=== PATIENT | male | born 1945 | race Caucasian/White ===

== ENCOUNTER 2020-03-08 09:20 | Emergency (ER) | payer MEDICARE ==
[~2020-03-08] VITALS: Ht 175.3 cm; Wt 95.2 kg
[~2020-03-08 09:20] MED LIST: AMLODIPINE BESYL5 MG PO; ATORVASTATIN CA80 MG PO; CAPTOPRIL HCTZ PO; CLOMIPRAMINE HC25 MG PO; EPIPEN 2-P0.3 MG/0.3 IM; HYDROCHLOROTHIA25 MG PO; LORCET 5-325 M1 EACH PO; PRAVACHOL40 MG PO; PREDNISONE20 MG PO; SERTRALINE HCL100 MG PO; VISTARIL25 MG PO
[2020-03-08] MEDS ORDERED: PREDNISONE20 MG PO (10:21)
[2020-03-08] MEDS ORDERED: FAMCICLOVIR500 MG PO (10:21)
[2020-03-08] MEDS ORDERED: NORCO 7.5-3251 EACH PO (10:21)
== END 2020-03-08 10:28 | disposition home or self-care (01) ==
LOC: ED 09:20
DX: B02.8 Zoster with other complications (principal); I10 Essential (primary) hypertension; Z91.013 Allergy to seafood; Z88.8 Allergy status to other drugs, medicaments and biological substances; Z88.0 Allergy status to penicillin; Z79.899 Other long term (current) drug therapy
CPT/HCPCS: 99283; J7512

== ENCOUNTER 2020-04-04 13:52 | Emergency (ER) | payer MEDICARE ==
[~2020-04-04] VITALS: Ht 175.3 cm; Wt 95.3 kg
[~2020-04-04 13:52] MED LIST changes: +FAMCICLOVIR500 MG PO; +NORCO 7.5-3251 EACH PO
--- OUTSIDE RECORDS SUMMARY | 2020-04-04 13:56 | XMS ---
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 Bess has no Care Guidelines for this patient. [facility]: Visits indicate total known visits. ED/C VISIT TRACKING (12 MO.) [facility]04[facility]2020 13[facility] [place] [facility] COMPLAINT: - DIZZY, NECK PAIN, FEVER 03/08/2020 09:20 [facility] [place] TYPE: Emergency COMPLAINT: - RASH DIAGNOSES: - Allergy status to penicillin - Rash and other nonspecific skin eruption - Essential (primary) hypertension - Allergy to seafood - Zoster with other complications - Other detention (current) drug therapy - Allergy status to other drugs, medicaments and biological sub INPATIENT VISIT TRACKING (12 MO.) No inpatient visits to display in this time frame [id number]
--- NOTE | 2020-04-04 22:33 | EKG ---
[facility] [address] [place] [address] Signed Normal sinus rhythm Normal ECG When compared with ECG of 13-MAR-2019 19:24, No significant change was found Confirmed by MAJO FERREIRA MD ([id number]) on 04/04/2020 10:33:11 PM Electronically Signed By: MAJO FERREIRA MD 04/04/20 2233 PATIENT NAME: RAMY SORENSEN SONAL Electrocardiogram DATE OF : 47 PHYSICIAN: MAJO FERREIRA MD REPORT #: [id number] REPORT IS CONFIDENTIAL AND NOT TO BE RELEASED WITHOUT AUTHORIZATION
== END 2020-04-04 17:57 | disposition home or self-care (01) ==
LOC: ED 13:52
DX: J40 Bronchitis, not specified as acute or chronic (principal); I10 Essential (primary) hypertension; Z91.013 Allergy to seafood; Z88.8 Allergy status to other drugs, medicaments and biological substances; Z88.0 Allergy status to penicillin; Z79.899 Other long term (current) drug therapy
CPT/HCPCS: 0297T; 0298T; 71045; 80053; 83735; 84484; 85025; 93005; 93010; 94640; 99285-25; C9803

== ENCOUNTER 2020-10-09 19:45 | Emergency (ER) | payer MEDICARE ==
[~2020-10-09] VITALS: Ht 175.3 cm; Wt 95.3 kg
--- OUTSIDE RECORDS SUMMARY | 2020-10-09 19:46 | XMS ---
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 Eddie VISIT COUNT (12 MO.) 4 [facility] TOTAL 4 NOTE: Visits indicate total known visits. ED/UCC VISIT TRACKING (12 MO.) 10/09/2020 19:45 [facility] [place] TYPE: Emergency COMPLAINT: - CHEST PAIN 09/29/2020 12:04 [facility] [place] TYPE: Emergency COMPLAINT: - SOB DIAGNOSES: - Other chest pain - Essential (primary) hypertension - Shortness of breath - Allergy to seafood - Allergy status to penicillin - Allergy status to other drugs, medicaments and biological substances - Other terminal clerk (current) drug therapy 04/04/2020 13:53 [facility] [place] TYPE: Emergency COMPLAINT: - DIZZY, NECK PAIN, FEVER DIAGNOSES: - Contact with and (suspected) exposure to other viral communicable diseases - Bronchitis, not specified as acute or chronic - Allergy to seafood - Allergy status to penicillin - Essential (primary) hypertension - Other terminal clerk (current) drug therapy - Allergy status to other drugs, medicaments and biological substances - Shortness of breath 03/08/2020 09:[address] [facility] [place] TYPE: Emergency COMPLAINT: - RASH DIAGNOSES: - Allergy status to penicillin - Rash and other nonspecific skin eruption - Essential (primary) hypertension - Allergy to seafood - Zoster with other complications - Other correction (current) drug therapy - Allergy status to other drugs, medicaments and biological substances INPATIENT VISIT TRACKING (12 MO.) No inpatient visits to display in this time frame [id number]
[2020-10-09] MEDS ORDERED: K-TAB ER20 MEQ PO (22:45)
--- NOTE | 2020-10-11 19:04 | EKG ---
[facility] [address] [facility] [place], [place] [address] Signed Sinus bradycardia Otherwise normal ECG When compared with ECG of 29-SEP-2020 12:15, Criteria for Septal infarct are no longer present Confirmed by BALDEMAR HERNANDEZ DO ([id number]) on 10/11/2020 7:04:19 PM Electronically Signed By: BALDEMAR HERNANDEZ DO 10/11/20 1904 PATIENT NAME: RIOSANDRADERAMY Electrocardiogram DATE OF : 47 PHYSICIAN: BALDEMAR HERNANDEZ DO REPORT #: [id number] REPORT IS CONFIDENTIAL AND NOT TO BE RELEASED WITHOUT AUTHORIZATION
== END 2020-10-09 23:00 | disposition home or self-care (01) ==
LOC: ED 19:45
DX: R07.89 Other chest pain (principal); E87.6 Hypokalemia; I10 Essential (primary) hypertension; Z86.73 Personal history of transient ischemic attack (TIA), and cerebral infarction without residual deficits; Z87.891 Personal history of nicotine dependence; Z91.013 Allergy to seafood; Z88.8 Allergy status to other drugs, medicaments and biological substances; Z88.0 Allergy status to penicillin; Z79.899 Other long term (current) drug therapy
CPT/HCPCS: 71045; 80053; 83735; 84484; 85025; 85379; 93005; 93010; 96374; 96375; 99285-25; C9113; J2405

== ENCOUNTER 2022-09-05 12:48 | Emergency (ER) | payer MEDICARE, OTHER ==
[~2022-09-05] VITALS: Ht 175.3 cm; Wt 97.5 kg
--- NOTE | ~2022-09-05 | EKG ---
[facility] [address] [facility] [place], [place] [address] Draft EK completed, results pending confirmation PATIENT NAME: RIOSANDRADERAMY Electrocardiogram DATE OF : 47 PHYSICIAN: PRELIMINARY REPORT #: [id number] REPORT IS CONFIDENTIAL AND NOT TO BE RELEASED WITHOUT AUTHORIZATION
[~2022-09-05 12:48] MED LIST changes: +K-TAB ER20 MEQ PO; +PHOSPHA 250 NE250 MG PO
== END 2022-09-05 16:48 | disposition home or self-care (01) ==
LOC: ED 12:48
DX: I95.1 Orthostatic hypotension (principal); I10 Essential (primary) hypertension; Z86.73 Personal history of transient ischemic attack (TIA), and cerebral infarction without residual deficits; Z87.891 Personal history of nicotine dependence; Z91.013 Allergy to seafood; Z88.0 Allergy status to penicillin; Z88.8 Allergy status to other drugs, medicaments and biological substances; Z79.899 Other long term (current) drug therapy
CPT/HCPCS: 36415; 80053; 81003; 83735; 84100; 85025; 93005; 93010; 96360; 99285-25; J7030

== ENCOUNTER 2022-10-15 16:33 | Emergency (ER) | payer MEDICARE, OTHER ==
[~2022-10-15] VITALS: Ht 175.3 cm; Wt 90.8 kg
--- NOTE | 2022-10-19 18:53 | EKG ---
[facility] [address] [facility] [place] [address] Signed Sinus bradycardia Nonspecific T wave abnormality Abnormal ECG When compared with ECG of 05-SEP-2022 12:59, No significant change was found Confirmed by Yazan Serrato MD () on 10/19/2022 6:52:59 PM Electronically Signed By: YAZAN SERRATO MD 10/19/221852 PATIENT NAME: EDURAMY Electrocardiogram DATE OF : 47 PHYSICIAN: YAZAN SERRATO MD REPORT #: [id number] REPORT IS CONFIDENTIAL AND NOT TO BE RELEASED WITHOUT AUTHORIZATION
== END 2022-10-15 20:17 | disposition home or self-care (01) ==
LOC: ED 16:33
DX: I95.1 Orthostatic hypotension (principal); I10 Essential (primary) hypertension; Z87.891 Personal history of nicotine dependence; Z79.899 Other long term (current) drug therapy; Z91.013 Allergy to seafood; Z88.8 Allergy status to other drugs, medicaments and biological substances; Z88.0 Allergy status to penicillin
CPT/HCPCS: 36415; 80053; 81003; 83735; 84484; 85025; 93005; 93010; 96360; 99284-25; J7030

== ENCOUNTER 2022-12-18 00:49 | Emergency (ER) | payer MEDICARE, OTHER ==
[~2022-12-18] VITALS: Ht 175.3 cm; Wt 95.7 kg
--- OUTSIDE RECORDS SUMMARY | 2022-12-18 00:56 | XMS ---
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 Care History Medical/Surgical 10/22/2020 [facility] - CHW CALLED PATIENT- UNABLE TO LEAVE A VOICEMAIL-VOICEMAIL BOX FULL - PATINET WAS LAST SEEN BY PCP DR MOLINA 04/09/2020 AND HAS NO FOLLOW UP APTS SCHEDULED. - CHW REQUESTED PCP CONTACT PATIENT FOR A FOLLOW UP APT TO BE SCHEDULED THEY STATED THEY WOULD. E.DShae VISIT COUNT (12 MO.) 4 [facility] TOTAL 4 NOTE: Visits indicate total known visits. ED/UCC VISIT TRACKING (12 MO.) 12/18/2022 00:50 [facility] [place] TYPE: Emergency COMPLAINT: - CP 11/19/2022 17:39 [facility] [place] TYPE: Emergency COMPLAINT: - WEAKNESS DIAGNOSES: - Allergy status to other drugs, medicaments and biological substances - Allergy status to penicillin - Allergy to seafood - Bradycardia, unspecified - Essential (primary) hypertension - Hypoglycemia, unspecified - Personal history of nicotine dependence - Personal history of transient ischemic attack (TIA), and cerebral infarction without residual deficits - Weakness 10/15/2022 16:33 [facility] [place] TYPE: Emergency COMPLAINT: - DIZZINESS DIAGNOSES: - Allergy status to other drugs, medicaments and biological substances - Allergy status to penicillin - Allergy to seafood - Dizziness and giddiness - Essential (primary) hypertension - Orthostatic hypotension - Other usp (current) drug therapy - Personal history of nicotine dependence 09/05/2022 12:48 [facility] [place] TYPE: Emergency COMPLAINT: - DIZZINESS DIAGNOSES: - Allergy status to other drugs, medicaments and biological substances - Allergy status to penicillin - Allergy to seafood - Essential (primary) hypertension - Orthostatic hypotension - Other usp (current) drug therapy - Personal history of nicotine dependence - Personal history of transient ischemic attack (TIA), and cerebral infarction without residual deficits - Weakness INPATIENT VISIT TRACKING (12 MO.) No inpatient visits to display in this time frame [id number]
[2022-12-18] MEDS ORDERED: MIRALAX17 GM PO (02:10)
[2022-12-18 02:30] VITALS: BP 116/58
--- NOTE | 2022-12-19 21:38 | EKG ---
[facility] [address] [facility] [place] [address] Signed Normal sinus rhythm Nonspecific T wave abnormality Abnormal ECG When compared with ECG of 19-NOV-2022 17:51, Sinus rhythm has replaced Junctional rhythm Confirmed by Yazan Serrato MD () on 12/19/2022 9:38:18 PM Electronically Signed By: YAZAN SERRATO MD 12/19/228 PATIENT NAME: EDURAMY Electrocardiogram DATE OF : 47 PHYSICIAN: YAZAN SERRATO MD REPORT #: [id number] REPORT IS CONFIDENTIAL AND NOT TO BE RELEASED WITHOUT AUTHORIZATION
== END 2022-12-18 02:31 | disposition home or self-care (01) ==
LOC: ED 00:49
DX: K56.7 Ileus, unspecified (principal); I10 Essential (primary) hypertension; Z87.891 Personal history of nicotine dependence; Z88.8 Allergy status to other drugs, medicaments and biological substances; Z91.013 Allergy to seafood; Z88.0 Allergy status to penicillin; Z79.899 Other long term (current) drug therapy
CPT/HCPCS: 36415; 71045; 74177; 80053; 83735; 83880; 84484; 85025; 85610; 93005; 93010; 99285-25; Q9967

== ENCOUNTER 2023-08-29 14:16 | Emergency (ER) | payer MEDICARE, OTHER ==
[~2023-08-29] VITALS: Ht 175.3 cm; Wt 90.8 kg
[~2023-08-29 14:16] MED LIST changes: +MIRALAX17 GM PO
[2023-08-29 14:46] LABS: BASOPHILS 0.8 % (0-2); EOSINOPHILS 4.3 % (0-6); HEMATOCRIT 40.5 % (35.0-50.0); LYMPHOCYTES 35.7 % (24-44); MCHC 34.6 g/dl (30-36); MCV 89.6 fl (81-99); MONOCYTES 9.2 % (0-12); PLATELET COUNT 129 K/uL (140-440); RBC 4.52 M/ul (4.3-5.7); RDW 13.7 (10.5-15.0)
[2023-08-29 15:02] LABS: ALBUMIN 3.3 g/dL (3.4-5.0); ALBUMIN/GLOBULIN RATIO 1.06 (1.1-2.4); ANION GAP 15.4 (7-21); BILIRUBIN, TOTAL 0.6 ng/dL (0.2-1.0); BUN/CREATININE RATIO 18.26 (6.0-28.6); CALCIUM 8.4 mg/dL (8.5-10.1); CREATININE, SERUM 1.04 mg/dL (0.70-1.30); POTASSIUM 3.4 mmol/L (3.5-5.1); PROTEIN, TOTAL 6.4 g/dL (6.4-8.2)
[2023-08-29 18:02] VITALS: BP 157/78
--- NOTE | 2023-08-30 20:22 | EKG ---
[facility] [address] [place] [address] Signed Marked sinus bradycardia Abnormal ECG When compared with ECG of 18-DEC-2022 00:56, Vent. rate has decreased BY 20 BPM Confirmed by Yazan Serrato MD () on 08/30/2023 8:22:38 PM Electronically Signed By: YAZAN SERRATO MD 08/30/232021 PATIENT NAME: RAMY SORENSEN SONAL Electrocardiogram DATE OF : 47 PHYSICIAN: YAZAN SERRATO MD REPORT #: [id number] REPORT IS CONFIDENTIAL AND NOT TO BE RELEASED WITHOUT AUTHORIZATION
== END 2023-08-29 18:03 | disposition left against medical advice (07) ==
LOC: ED 14:16
PROVIDERS: Family Medicine
DX: R00.1 Bradycardia, unspecified (principal); R55 Syncope and collapse; Z53.29 Procedure and treatment not carried out because of patient's decision for other reasons; I10 Essential (primary) hypertension; Z87.891 Personal history of nicotine dependence; Z88.8 Allergy status to other drugs, medicaments and biological substances; Z88.0 Allergy status to penicillin; Z91.013 Allergy to seafood; Z79.899 Other long term (current) drug therapy
CPT/HCPCS: 36415; 71045; 73030; 80053; 83735; 84484; 85025; 99284-25

== ENCOUNTER 2024-04-09 11:12 | Observation (INO) | payer MEDICARE, OTHER ==
[~2024-04-09] VITALS: Ht 175.3 cm; Wt 89.1 kg
[~2024-04-09 11:12] MED LIST changes: +HYDROXYZINE HCL25 MG PO
[2024-04-09] MEDS ORDERED: IBLOOD GLUCOSE TEST STRIP 1 EA TEST XX ONE (11:45)
[2024-04-09 11:47] LABS: BASOPHILS 0.7 % (0-2); EOSINOPHILS 1.2 % (0-6); HEMATOCRIT 45.6 % (35.0-50.0); HEMOGLOBIN 15.6 g/dL (12.0-18.0); LYMPHOCYTES 41.5 % (24-44); MCH 30.3 (27-36); MCHC 34.1 g/dl (30-36); MCV 88.8 fl (81-99); MONOCYTES 8.5 % (0-12); NEUTROPHILS 48.1 % (39-80); PLATELET COUNT 136 K/uL (140-440); RBC 5.14 M/ul (4.3-5.7); RDW 14.7 (10.5-15.0)
[2024-04-09 11:59] LABS: INR 1.01 (0.80-1.30); PROTIME 12.6 Sec (11.2-14.2)
[2024-04-09 12:11] LABS: ALBUMIN 3.8 g/dL (3.4-5.0); ALBUMIN/GLOBULIN RATIO 1.19 (1.1-2.4); ANION GAP 17.1 (7-21); BILIRUBIN, TOTAL 0.7 ng/dL (0.2-1.0); BUN/CREATININE RATIO 15.38 (6.0-28.6); CREATININE, SERUM 1.3 mg/dL (0.70-1.30); POTASSIUM 4.1 mmol/L (3.5-5.1)
[2024-04-09] MEDS ORDERED: ASPIRIN 325 MG TAB PO ONE (12:30)
[2024-04-09] MEDS ORDERED: CLOPIDOGREL BISULFATE 75 MG TAB PO ONE ×2 (12:30→13:15)
[2024-04-09] MEDS ORDERED: ATORVASTATIN 40 MG TAB PO ONE (13:15)
[2024-04-09 15:01] VITALS: BP 169/76
--- NOTE | 2024-04-09 15:15 | NUR ---
PATIENT IS SETTLED IN HIS ROOM ON THE MEDICAL SURGICAL FLOOR AT THIS TIME. ADMISSION COMPLETE. PATIENT WITH NO MEDICATIONS DUE. FULL ASSESSMENT COMPLETE AND DOCUMENTED IN THE CHART. PATIENT IS ALERT AND ORIENTED TIMES FOUR. NIH COMPLETE AND SCORED 0. PATIENT IS HARD OF HEARING. CARDIAC WITH NORMAL S1 AND S2 ON AUSCULTATION. RADIAL PULSES ARE STRONG BILATERALLY. SENSATION INTACT WITH NUMBNESS NOTED IN THE HANDS AND FEET BILATERALLY. PATIENT IS ON TELEMETRY NUMBER 6. PATIENT IS ON ROOM AIR AND LUNG SOUNDS ARE CLEAR BILATERALLY. PATIENT IS ON A REGULAR DIET AND BOWEL TONES ARE ACTIVE IN ALL FOUR QUADRANTS. LAST BOWEL MOVEMENT WAS 04/08/24. PATIENT WITH THE URINAL AT BEDSIDE. PATIENT WITH AN 18 GAUGE IV IN THE LEFT FOREARM. IV FLUSHED WITH 10 ML NORMAL SALINE AND IS SALINE LOCKED. IV DRESSING IS CLEAN, DRY, AND INTACT. PATIENT WITH PAIN RATED 7/10 IN THE SHOULDER. SKIN INTACT. PATIENT STATED NO FURTHER NEEDS AT THIS TIME. CALL LIGHT AND PERSONAL BELONGINGS ARE WITHIN REACH.
--- NOTE | 2024-04-09 15:53 | NUR ---
PATIENT GIVEN AN ENSURE SHAKE AND PUDDING. PATIENT EDUCATED TO PRESS THE CALL BUTTON IF THEY NEED TO GET UP AND OUT OF BED. PATIENT EXPRESSED UNDERSTANDING. PATIENT STATED NO FURTHER NEEDS AT THIS TIME. CALL LIGHT AND PERSONAL BELONGINGS ARE WITHIN REACH.
--- NOTE | 2024-04-09 16:30 | NUR ---
PATIENT IS LYING BED WITH EYES OPEN AND WATCHING TV. RESPIRATIONS ARE EVEN AND UNLABORED. CALL LIGHT AND PERSONAL BELONGINGS ARE WITHIN REACH.
--- NOTE | 2024-04-09 17:30 | NUR ---
PATIENT IS LYING IN BED AND TRYING TO GET A HOLD OF HIS IN A CARE FACILITY AT [facility]. PATIENT IS ON TELE #6. PATIENT WITH NO FURTHER NEEDS AT THIS TIME. BED ALARM ON. CALL LIGHT AND PERSONAL BELONGINGS ARE WITHIN REACH.
--- NOTE | 2024-04-09 17:45 | NUR ---
medications reconciled using pharmacy records and patient interview
[2024-04-09 17:56] VITALS: BP 136/76
[2024-04-09] MEDS ORDERED: ACETAMINOPHEN 325 MG TAB PO PRN (18:00)
[2024-04-09 18:14] VITALS: BP 136/76
--- NOTE | 2024-04-09 19:15 | NUR ---
BOARD UPDATED. REPORT RECEIVED FROM KULDIP KERR. pt RESTING IN THE BED. pt REQUESTING A SNACK. SNACK PROVIDED. pt DENIES ANY OTHER NEEDS A THIS TIME.
[2024-04-09 20:29] VITALS: BP 134/73
--- NOTE | 2024-04-09 21:15 | NUR ---
ASSESSMENT DONE. A&O X4. pt DENIES ANY NUMBNESS AND TINGLING. BED ALARM ON. pt DENIES ANY OTHER NEEDS AT THIS TIME. CALL LIGHT WITHIN REACH. WATER REFRESHED. pt ON TELE #6.
[2024-04-09 22:23] VITALS: BP 134/73
--- NOTE | 2024-04-09 22:29 | EKG ---
[facility] [address] [facility] [place] [address] Signed Sinus bradycardia Otherwise normal ECG When compared with ECG of 25-FEB-2024 19:11, No significant change was found Confirmed by Yazan Serrato MD () on 04/09/2024 10:29:06 PM Electronically Signed By: YAZAN SERRATO MD 04/09/24 2229 PATIENT NAME: RAMY SORENSEN SONAL Electrocardiogram DATE OF : 47 PHYSICIAN: YAZAN SERRATO MD REPORT #: [id number] REPORT IS CONFIDENTIAL AND NOT TO BE RELEASED WITHOUT AUTHORIZATION
--- NOTE | 2024-04-09 23:13 | NUR ---
pt RESTING IN THE BED WITH EYES CLOSED. RR EVEN AND UNLABORED. CALL LIGHT WITHIN REACH.
[2024-04-10] VITALS (7 sets, daily range): BP systolic 136–164; BP diastolic 77–83
--- NOTE | 2024-04-10 01:42 | NUR ---
VITAL SIGNS DONE. URINAL EMPTIED. pt DENIES ANY OTHER NEEDS AT THIS TIME. CALL LIGHT WITHIN REACH.
--- NOTE | 2024-04-10 04:01 | NUR ---
pt RESTING IN THE BED WITH EYES CLOSED. RR EVEN AND UNLABORED. CALL LIGHT WITHIN REACH.
[2024-04-10 05:27] LABS: BASOPHILS 0.8 % (0-2); EOSINOPHILS 2.6 % (0-6); HEMATOCRIT 41.6 % (35.0-50.0); HEMOGLOBIN 14.2 g/dL (12.0-18.0); LYMPHOCYTES 38.6 % (24-44); MCH 30.6 (27-36); MCHC 34.2 g/dl (30-36); MCV 89.6 fl (81-99); MONOCYTES 7.8 % (0-12); NEUTROPHILS 50.2 % (39-80); PLATELET COUNT 112 K/uL (140-440); RBC 4.65 M/ul (4.3-5.7); RDW 14.3 (10.5-15.0)
[2024-04-10 05:43] LABS: ALBUMIN 3.5 g/dL (3.4-5.0); ALBUMIN/GLOBULIN RATIO 1.17 (1.1-2.4); BILIRUBIN, TOTAL 0.6 ng/dL (0.2-1.0); BUN/CREATININE RATIO 15.12 (6.0-28.6); CALCIUM 8.9 mg/dL (8.5-10.1); CREATININE, SERUM 1.19 mg/dL (0.70-1.30); MAGNESIUM 2.2 mg/dL (1.8-2.4); PHOSPHORUS, INORGANIC 4.4 mg/dL (2.5-4.9); PROTEIN, TOTAL 6.5 g/dL (6.4-8.2)
--- NOTE | 2024-04-10 06:36 | NUR ---
pt RESTED THROUGH OUT THE NIGHT. pt WAS IN SINUS PHILIP ON THE TELE THROUGH OUT THE NIGHT. THIS IS NORMAL FOR THE pt, MD AWARE. pt A&0 X4. NO NEW DEFICITS AT THIS TIME.
--- NOTE | 2024-04-10 07:30 | NUR ---
REPORT REC'D FROM KAL. PT RESTING IN BED WITH BLANKETS OVERHEAD, RESPIRATIONS 16
--- NOTE | 2024-04-10 07:32 | NUR ---
PATIENT IN BED AT THIS TIME. FRONT OFFICE REPRESENTATIVE WENT INTO PATIENTS ROOM TO DO HOURLY ROUNDS. CALL LIGHT WITHIN REACH, NO FURTHER NEEDS AT THIS TIME.
[2024-04-10] MEDS ORDERED: ASPIRIN 81 MG CHEW PO SCH (08:00)
[2024-04-10] MEDS ORDERED: CLOPIDOGREL BISULFATE 75 MG TAB PO SCH (09:00)
[2024-04-10] MEDS ORDERED: ATORVASTATIN 40 MG TAB PO SCH (09:00)
[2024-04-10] MEDS ORDERED: ENOXAPARIN SODIUM 40 MG/0.4 ML SYR SUB-Q SCH (09:00)
[2024-04-10] MEDS ORDERED: SERTRALINE HCL 100 MG TAB PO SCH (09:00)
--- NOTE | 2024-04-10 09:08 | NUR ---
UR CLINICAL REVIEW: 2 MN FOR VERSALUS-MEETS OUTPATIENT CRITERIA FOR CVA MEDICARE OUTPATIENT 04/09/24 @ 1420 ORDER MATCHES REG NO AUTH REQUIRED PER MEDICARE GUIDELINES DISCHARGE PENDING ECHO IN 12-24 HOURS 04/11/24
--- NOTE | 2024-04-10 09:20 | NUR ---
PT C/O SOB AFTER TRANSFERRING FROM BED TO RECLINER TO SENIOR COUNSEL. I WENT IN AND PT STATES HE IS FEELING "BETTER", BUT SHARED THAT HE IS SAD BECAUSE HIS DOG AND HIS IS NOT LIVING AT HOME ANYMORE. I OFFERED SUPPORT TO PT AND OFFERED TO CALL THE MARKETING OPERATIONS ASSISTANT, PT AGREED THAT HE WOULD LIKE TO SPEAK WITH MARKETING OPERATIONS ASSISTANT. O2 100%, RESPIRATORY RATE 16 AND RESPIRATIONS EVEN AND UNLABORED. CALL LIGHT WITHIN REACH, NO OTHER NEEDS IDENTIFIED AT THIS TIME.
--- NOTE | 2024-04-10 09:25 | NUR ---
CALLED AND IS COMING TO SEE PT.
--- NOTE | 2024-04-10 09:30 | NUR ---
Spoke with Martinez. He resides at [facility]. Pt denies use of DME and drives. Pt plans on return to [facility]. Called and spoke with Marti at [facility]. She states pt left yesterday and they did not know where he was. They checked with the police. She states he may return there today. Let her know will write orders and I will fax when paperwork is completed.
--- NOTE | 2024-04-10 10:04 | NUR ---
PATIENT IN CHAIR AT THIS TIME. CERTIFIED ENERGY MANAGER CHARTED VITALS AND I&O'S. AFTER GETTING INTO THE CHAIR, PATIENT STATED THAT HE WAS SHORT OF BREATH, JESUS RN HAS BEEN NOTIFIED. CALL LIGHT WITHIN REACH, NO FURTHER NEEDS AT THIS TIME.
--- NOTE | 2024-04-10 10:26 | NUR ---
PT REQUESTED VISIT. PT TALKED OF LIFE EVENTS AND FAMILY SITUATION. EXPRESSED SADNESS REGARDING OF PET, DESIRE TO SEE SONE OR DAUGHTER BUT DOES NOT KNOW PHONE NUMBERS. GRADUATE TEACHER EDUCATION PROVIDED SUPPORTIVE PRESENCE, LISTENED EMPATHETICALLY, FACILIATED LIFE REVIEW, PROVIDED PRAYER. COORDINATED WITH CASE MANAGEMENT TO VERIFY EFFORTS ARE UNDERWAY TO CONNECT PT WITH ADULT CHILDREN.
--- NOTE | 2024-04-10 11:08 | NUR ---
PATIENT IN CHAIR AT THIS TIME. BONE GRINDER PROVIDED PATIENT WITH FRESH LINENS. BONE GRINDER ALSO ASSISTED PATIENT TO BATHROOM. CALL LIGHT WITHIN REACH, NO FURTHER NEEDS AT THIS TIME.
--- NOTE | 2024-04-10 11:23 | NUR ---
PATIENT IN CHAIR AT THIS TIME. COSMETOLOGIST PROVIDED PATIENT WITH COFFEE. CALL LIGHT WITHIN REACH, NO FURTHER NEEDS AT THIS TIME.
[2024-04-10] MEDS ORDERED: PHARMACY RENAL DOSE ADJUSTMENT 1 DOSE MISC PO SCH (12:00)
--- NOTE | 2024-04-10 12:30 | NUR ---
Updated with Dr. Menard. He plans on dc this pt today. He spoke with pt about concerns for his driving and pt states he will ask [facility] staff to drive his car home.
--- NOTE | 2024-04-10 12:38 | NUR ---
Pt up walking in servin, approached nursing requesting to go out to verify his car is in the parking lot. RN stated we could not allow him to leave the unit, but could look if he was able to tell us his make/model. Pt stated he "just bought the car" and was unable to tell staff. He also was not able to tell staff the color of the car. He also stated "his was coming to get the car". Pt's currently is in [place]. RN stated we could have someone wheel him out to verify his car is on property.
--- NOTE | 2024-04-10 13:25 | NUR ---
PT RESTING IN BED, NO REQUESTS AT THIS TIME.
[2024-04-10] MEDS ORDERED: CLOPIDOGREL75 MG PO (13:59)
[2024-04-10] MEDS ORDERED: LIPITOR40 MG PO (14:00)
[2024-04-10] MEDS ORDERED: ASPIRIN81 MG PO (14:00)
--- NOTE | 2024-04-10 14:30 | NUR ---
Faxed orders, H&P, DC summary to Marti. Called and left a message for Destiney at [facility] about concerns for pt driving and request by our Dr. he not drive until seen by his PCP. Destiney is his CW at [facility]. NOtified by Dr. Menard, pt will contact [facility] and ask them to drive his car home. I called Marti at [facility] and updated. She states they absolutely will not drive pts car. He is uninsured. I spoke with Renetta, charge nurse, updated. She will call and taxi for pt on dc.
--- NOTE | 2024-04-10 14:30 | NUR ---
PATIENT IN BED AT THIS TIME. CALL LIGHT WITHIN REACH, NO FURTHER NEEDS AT THIS TIME.
--- NOTE | 2024-04-10 15:00 | NUR ---
In and spoke with pt. Discussed [facility] staff cannot drive his car as it is uninsured. He states he knows it is uninsured and he doesn't have money to pay for insurance. Discussed he cannot drive as it is illegal. I am also concerned about his ability to drive. Pt states he has to have his car as he has appointment. Let him know we will call a taxi for him. Pt asks the RN for his keys. She states she will give them to him. Pt states he will walk, but then states he driving. I let him know if he attempts to drive, I will contact the police. Charge nurse to the room and states the taxi is on its way. She will go out with the pt. He he drives, she will contact the police. Updated [facility]. Per Marti, pt drove home 2 nights ago with a flat tire. Someone followed him as it was shooting iraheta and came in and let them know. Pt was unaware his tire was flat.
--- NOTE | 2024-04-10 15:29 | NUR ---
APS referral made with
--- NOTE | 2024-04-10 15:54 | NUR ---
Notified by Kathleen, she will notify the DMV and pt will be requested to come in for a driving test. She will notify pt Destiney PINON. Let her know the police were called by our charge nurse when he drove off in his car today.
--- NOTE | 2024-04-10 16:00 | NUR ---
Notified by Marti at [facility], pt's rx was sent to [facility]. Their pharmacy is [facility]. 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 NOtified Dr. Menard and RX written. RX, face sheet, and cover sheet faxed to [facility].
--- NOTE | 2024-04-12 09:57 | NUR ---
Received a call from Destiney at [facility]. She is following up from APS referral as she is his cw from [facility]. She is confused as I left a message asking if they could assist pt to get his car back to [facility]. I updated her, I then learned he was uninsured and there was concern for his driving from [facility]. I had attempted to send him to [facility] in a Taxi. When he went to the parking lot, he refused the taxi and drove his car. The charge nurse notified the police. Dr Menard our hospitalist had ordered no driving until his was seen by his pcp. She states the previous CW had concerned about pts driving and had notified his pcp.
== END 2024-04-10 15:05 | disposition home or self-care (01) ==
LOC: ED 11:12 → MS 11:14
PROVIDERS: Emergency Medicine; ADMIT Student in an Organized Health Care Education/Training Program; ATTEND Student in an Organized Health Care Education/Training Program
DX: G45.9 Transient cerebral ischemic attack, unspecified (principal); F39 Unspecified mood [affective] disorder; E78.1 Pure hyperglyceridemia; E78.00 Pure hypercholesterolemia, unspecified; I10 Essential (primary) hypertension; Z79.899 Other long term (current) drug therapy; Z88.0 Allergy status to penicillin; Z88.8 Allergy status to other drugs, medicaments and biological substances; Z91.013 Allergy to seafood
CPT/HCPCS: 36415; 70450; 70496; 70498; 70551; 71045; 80053; 80061; 80307; 83036; 83735; 84100; 84484; 85025; 85610; 85730; 93005; 93010; 93306; 96372; 97161; 97165; 99285-25; A9270; G0378; J1650

== ENCOUNTER 2024-10-31 18:20 | Emergency (ER) | payer MEDICARE, OTHER ==
[~2024-10-31] VITALS: Ht 175.3 cm; Wt 85.5 kg
[~2024-10-31 18:20] MED LIST changes: +ASPIRIN81 MG PO; +CLOPIDOGREL75 MG PO; +LIPITOR40 MG PO
[2024-10-31 18:35] LABS: BASOPHILS 0.6 % (0-2); EOSINOPHILS 1.3 % (0-6); HEMATOCRIT 39.3 % (35.0-50.0); HEMOGLOBIN 13.9 g/dL (12.0-18.0); LYMPHOCYTES 21.1 % (24-44); MCH 31.6 (27-36); MCHC 35.4 g/dl (30-36); MCV 89.2 fl (81-99); MONOCYTES 6.9 % (0-12); NEUTROPHILS 70.1 % (39-80); PLATELET COUNT 131 K/uL (140-440); RDW 13.8 (10.5-15.0)
[2024-10-31 18:55] LABS: ALBUMIN 3.5 g/dL (3.4-5.0); ALBUMIN/GLOBULIN RATIO 1.35 (1.1-2.4); ANION GAP 14.9 (7-21); BILIRUBIN, TOTAL 0.6 mg/dL (0.2-1.0); BUN/CREATININE RATIO 15.59 (6.0-28.6); CALCIUM 8.3 mg/dL (8.5-10.1); CREATININE, SERUM 1.09 mg/dL (0.70-1.30); MAGNESIUM 1.9 mg/dL (1.8-2.4); POTASSIUM 3.9 mmol/L (3.5-5.1); PROTEIN, TOTAL 6.1 g/dL (6.4-8.2)
--- NOTE | 2024-10-31 19:24 | EKG ---
[facility] [address] [facility] [place] [address] Signed Sinus bradycardia Nonspecific T wave abnormality Abnormal ECG When compared with ECG of 09-APR-2024 12:07, Nonspecific T wave abnormality now evident in Inferior leads Confirmed by Yrn Jensen MD ([id number]) on 10/31/2024 7:23:48 PM Electronically Signed By: YRN JENSEN MD 10/31/241923 PATIENT NAME: RIOSANDRADERAMY Electrocardiogram DATE OF : 47 PHYSICIAN: YRN JENSEN MD REPORT #: [id number] REPORT IS CONFIDENTIAL AND NOT TO BE RELEASED WITHOUT AUTHORIZATION
[2024-10-31 20:14] LABS: BILIRUBIN, URINE NEGATIVE (negative); BLOOD/HGB, URINE NEGATIVE (Negative); KETONE, URINE NEGATIVE (Negative); LEUK ESTERASE, URINE NEGATIVE (negative); NITRITE, URINE NEGATIVE (negative); PH, URINE 6.5 (5-7)
[2024-10-31 21:33] VITALS: BP 141/72
== END 2024-10-31 21:20 | disposition home or self-care (01) ==
LOC: ED 18:20
PROVIDERS: Emergency Medicine; Family Medicine
DX: R42 Dizziness and giddiness (principal); R00.1 Bradycardia, unspecified; I10 Essential (primary) hypertension; Z91.013 Allergy to seafood; Z88.0 Allergy status to penicillin; Z88.8 Allergy status to other drugs, medicaments and biological substances; Z79.82 Long term (current) use of aspirin; Z79.899 Other long term (current) drug therapy; Z87.891 Personal history of nicotine dependence
CPT/HCPCS: 36415; 70450; 72125; 73030; 80053; 81003; 83735; 84484; 85025; 93005; 93010; 99285-25; G0480

== ENCOUNTER 2025-01-28 14:28 | Emergency (ER) | payer MEDICARE, OTHER ==
[~2025-01-28] VITALS: Ht 175.3 cm; Wt 84.8 kg
[2025-01-28 14:54] LABS: BASOPHILS 0.5 % (0.2-1.2); EOSINOPHILS 2.4 % (0.8-7.0); HEMOGLOBIN 13.3 g/dL (13.7-17.5); LYMPHOCYTES 27.8 % (21.8-53.1); MCH 30.9 PG (25.7-32.2); MCHC 34.1 g/dL (32.3-36.5); MCV 90.7 fL (79.0-92.2); MONOCYTES 7.3 % (5.3-12.2); NEUTROPHILS 61.8 % (34.0-67.9); PLATELET COUNT 115 K/uL (163-337)
[2025-01-28 15:44] LABS: ALBUMIN 3.6 g/dL (3.4-5.0); ALBUMIN/GLOBULIN RATIO 1.33 (1.1-2.4); ANION GAP 14.8 (7-21); BILIRUBIN, TOTAL 0.7 mg/dL (0.2-1.0); BUN/CREATININE RATIO 17.64 (6.0-28.6); CALCIUM 8.6 mg/dL (8.5-10.1); CREATININE, SERUM 1.19 mg/dL (0.70-1.30); POTASSIUM 3.8 mmol/L (3.5-5.1); PROTEIN, TOTAL 6.3 g/dL (6.4-8.2)
[2025-01-28 17:18] VITALS: BP 151/84
== END 2025-01-28 17:26 | disposition home or self-care (01) ==
LOC: ED 14:28
PROVIDERS: Emergency Medicine
DX: S01.21XA Laceration without foreign body of nose, initial encounter (principal); W18.30XA Fall on same level, unspecified, initial encounter
CPT/HCPCS: 12011; 36415; 70450; 72125; 80053; 85025; 99284-25; G0480

== ENCOUNTER 2025-02-08 11:41 | Emergency (ER) | payer MEDICARE, OTHER ==
[~2025-02-08] VITALS: Ht 175.3 cm; Wt 84.9 kg
[2025-02-08 11:57] LABS: BASOPHILS 0.3 % (0.2-1.2); EOSINOPHILS 2.2 % (0.8-7.0); LYMPHOCYTES 44.9 % (21.8-53.1); MCH 30.7 PG (25.7-32.2); MCHC 33.5 g/dL (32.3-36.5); MCV 91.6 fL (79.0-92.2); MONOCYTES 6.6 % (5.3-12.2); NEUTROPHILS 45.8 % (34.0-67.9); RBC 4.63 M/uL (4.63-6.08)
[2025-02-08 12:21] LABS: ALT (SGPT) 15.0 U/L (14-59); AST (SGOT) 17.0 U/L (15-37); GLOMERULAR FILTRATION RATE,EST 64.0 mL/min (>60); PROTEIN, TOTAL 6.7 g/dL (6.4-8.2); UREA NITROGEN 9.0 mg/dL (7-18)
[2025-02-08 13:02] VITALS: BP 121/70
--- NOTE | 2025-02-10 17:47 | EKG ---
[facility] [address] [facility] [place] [address] Signed Junctional bradycardia Abnormal ECG When compared with ECG of 31-OCT-2024 18:28, Junctional rhythm has replaced Sinus rhythm Nonspecific T wave abnormality no longer evident in Inferior leads Confirmed by Joseph Ceaj DO ([id number]) on 02/10/2025 5:47:28 PM Electronically Signed By: JOSEPH CEJA DO 02/10/25 1747 PATIENT NAME: RIOSANDRADERAMY Electrocardiogram DATE OF : 47 PHYSICIAN: JOSEPH CEJA DO REPORT #: [id number] REPORT IS CONFIDENTIAL AND NOT TO BE RELEASED WITHOUT AUTHORIZATION
== END 2025-02-08 13:00 | disposition home or self-care (01) ==
LOC: ED 11:41
PROVIDERS: Emergency Medicine
DX: R07.9 Chest pain, unspecified (principal); I10 Essential (primary) hypertension; F03.90 Unspecified dementia, unspecified severity, without behavioral disturbance, psychotic disturbance, mood disturbance, and anxiety; Z86.73 Personal history of transient ischemic attack (TIA), and cerebral infarction without residual deficits; Z87.891 Personal history of nicotine dependence; Z88.0 Allergy status to penicillin; Z88.8 Allergy status to other drugs, medicaments and biological substances; Z91.013 Allergy to seafood; Z79.82 Long term (current) use of aspirin; Z79.899 Other long term (current) drug therapy
CPT/HCPCS: 36415; 71045; 80053; 83735; 84484; 85025; 93005; 93010; 99285-25

== ENCOUNTER 2025-02-20 12:06 | Emergency (ER) | payer MEDICARE, OTHER ==
[~2025-02-20] VITALS: Ht 175.3 cm; Wt 84.9 kg
[2025-02-20] MEDS ORDERED: ASPIRIN 81 MG CHEW PO ONE (12:15)
[2025-02-20 12:22] LABS: BASOPHILS 0.6 % (0.2-1.2); EOSINOPHILS 2.0 % (0.8-7.0); LYMPHOCYTES 42.6 % (21.8-53.1); MCH 31.1 PG (25.7-32.2); MCHC 34.3 g/dL (32.3-36.5); MCV 90.5 fL (79.0-92.2); MONOCYTES 6.8 % (5.3-12.2); NEUTROPHILS 47.8 % (34.0-67.9); RBC 4.54 M/uL (4.63-6.08)
[2025-02-20] MEDS ORDERED: SODIUM CHLORIDE 0.9% 1,000 ML IV PRN (12:30)
[2025-02-20] MEDS ORDERED: CLOPIDOGREL75 MG PO (12:32)
[2025-02-20 12:56] LABS: ALT (SGPT) 20.0 U/L (14-59); AST (SGOT) 15.0 U/L (15-37); GLOMERULAR FILTRATION RATE,EST 73.0 mL/min (>60); PROTEIN, TOTAL 6.6 g/dL (6.4-8.2); UREA NITROGEN 17.0 mg/dL (7-18)
[2025-02-20 14:22] VITALS: BP 112/84
--- NOTE | 2025-02-21 20:29 | EKG ---
[facility] [address] [facility] [place] [address] Signed Sinus bradycardia Nonspecific ST and T wave abnormality Abnormal ECG When compared with ECG of 08-FEB-2025 11:39, Sinus rhythm has replaced Junctional rhythm Nonspecific T wave abnormality now evident in Inferior leads Confirmed by Yazan Serrato MD () on 02/21/2025 8:28:43 PM Electronically Signed By: YAZAN SERRATO MD 02/21/252028 PATIENT NAME: RAMY SORENSEN Electrocardiogram DATE OF : 47 PHYSICIAN: YAZAN SERRATO MD REPORT #: [id number] REPORT IS CONFIDENTIAL AND NOT TO BE RELEASED WITHOUT AUTHORIZATION
== END 2025-02-20 14:22 | disposition home or self-care (01) ==
LOC: ED 12:06
PROVIDERS: Emergency Medicine
DX: R07.9 Chest pain, unspecified (principal); I10 Essential (primary) hypertension; Z87.891 Personal history of nicotine dependence; Z86.73 Personal history of transient ischemic attack (TIA), and cerebral infarction without residual deficits; Z79.82 Long term (current) use of aspirin; Z79.899 Other long term (current) drug therapy; Z91.013 Allergy to seafood; Z88.0 Allergy status to penicillin; Z88.8 Allergy status to other drugs, medicaments and biological substances
CPT/HCPCS: 36415; 71045; 80053; 83735; 84484; 85025; 93005; 93010; 99285-25; A9270; J7030